=== PATIENT | male | born 1985 | race Caucasian/White ===

== ENCOUNTER 2018-02-20 21:36 | Emergency (ER) | payer OTHER, SELFPAY ==
[2018-02-20 21:37] VITALS: BP 135/77; PULSE 69; RESP 16; TEMP 37.1; O2SAT 98; BMI 21.2
--- NOTE | 2018-02-20 22:03 | EKG12_ITS ---
Test Reason : CHEST OTHER Blood Pressure : / mmHG Vent. Rate : 070 BPM Atrial Rate : 070 BPM P-R Int : 158 ms QRS Dur : 102 ms QT Int : 410 ms P-R-T Axes : 078 093 063 degrees QTc Int : 442 ms Normal sinus rhythm with sinus arrhythmia Possible Biatrial enlargement Abnormal ECG Confirmed by MERCEDES GARCIA ([id number]), film editor DULCE BALLESTEROS ([id number]) on 02/22/2018 9:31:23 AM Referred By: BRYANT/SHELLIE Confirmed By:MERCEDES GARCIA
--- NOTE | 2018-02-20 22:05 | RAD_ITS ---
STUDY: X-RAY CHEST REASON FOR EXAM: Male, 33 years old. Chest pain. TECHNIQUE: Single AP portable view of the chest. COMPARISON: 07/19/2013. FINDINGS: The lungs are clear and expanded. There is no demonstrated pleural abnormality. Sternal cerclage wires and vascular clips are present from a prior sternotomy and coronary artery bypass graft procedure (CABG). The heart size normal. Normal mediastinum and yesenia. Normal visualized pulmonary arteries. Normal visualized aortic arch and descending thoracic aorta. The thoracic spine is obscured by the mediastinum. Normal visualized ribs, clavicles, and shoulders. There is no demonstrated abnormality of the visualized soft tissue structures of the upper abdomen. RAD/Chest 1 View (Portable) IMPRESSION: No active pulmonary disease. Electronically Signed: Juan Maria MD at 22:28 EDT Tel , Service support ,
--- NOTE | 2018-02-20 22:23 | CT_ITS ---
STUDY: CTA CHEST REASON FOR EXAM: Male, 33 years old. Chest pain and numbness. RADIATION DOSAGE (If Supplied By Facility): CTDIvol = ( 11.33 ) mGy, DLP = ( 342.17 ) mGycm TECHNIQUE: The examination was performed with the intravenous administration of 100 ml of Isovue 370 contrast material. Post-processing of the angiographic images was performed, with multiplanar reformation and 3D reconstruction. Individualized dose optimization techniques were used for this CT. COMPARISON: None. FINDINGS: Normal enhancement of the main pulmonary artery and right and left pulmonary arteries. Normal enhancement of the bilateral peripheral pulmonary arteries. There is no demonstrated pulmonary embolism. There are surgical clips in the region of the aortic root. There is suboptimal enhancement of the aorta. Sternal cerclage wires are present from a prior sternotomy. There is no evidence of pericardial effusion. The heart size is normal. Normal mediastinum. Normal hilar regions. Normal visualized trachea and bronchi. The lungs are well expanded. There are no pulmonary infiltrates. There are no pleural effusions. Normal chest wall structures. There are Schmorl's nodes in the lower thoracic spine. Normal visualized upper abdomen. CT/CTA Chest W/WO Contrast IMPRESSION: No demonstrated pulmonary embolism. Status post median sternotomy. No infiltrate is seen. Electronically Signed: Juan Maria MD at 23:50 EDT Tel , Service support ,
[2018-02-20 22:29] VITALS: BP 134/80; PULSE 56; RESP 14; O2SAT 96
[2018-02-20 22:31] LABS: Absolute Lymphocyte Count 2.18 X10^3/ul (0.83-4.51); Absolute Neutrophil Count 2.6 X10^3/uL (2.0-7.7); Basophil# 0.01 X10^3/uL; Basophil% 0.2 % (0-1); Eosinophils% 1.8 % (0-5); Hematocrit 40.6 % (40-54); Hemoglobin 13.4 g/dl (13.0-16.5); Lymphocyte # 2.18 X10^3/ul (4.0); Lymphocyte % 38.9 % (19-41); Mean Corpuscular Hgb 28.8 pg (27.0-32.0); Mean Corpuscular Volume 87.3 fL (80-94); Mean Platelet Vol. 10.1 fl (6.2-12.0); Monocyte# 0.68 X10^3/uL; Monocyte% 12.1 % (0-10); Neutrophil # 2.62 X10^3/uL (2.7-7.7); Neutrophil % 46.8 % (47-70); Platelet Count 205 K/mm3 (150-450); RBC Distribution Width CV 12.2 % (11.6-14.6); RBC Distribution Width SD 38.7 fl (35.1-43.9); Red Blood Count 4.65 M/mm3 (4.6-6.2); White Blood Count 5.6 K/mm3 (4.4-11.0)
--- NOTE | 2018-02-20 22:35 | ED.VISSUMM ---
- ER Visit Summary Date of Service: 02/20/18 Chief Complaint: Palpitations, abnormal chest sensation History of Present Illness: The patient is a 33 M with medical history significant for thoracic aortic aneurysm that is status post graft repair in 2013 presents with abnormal chest sensation. Patient states that 4 days ago, he began to have numbness in the area surrounding his heart. He was also having some palpitations. He denies any franca chest pain. He denies any shortness of breath. He states over the weekend, it had resolved. Tonight, he began to have a similar sensation and felt as if his heart was skipping beats. The patient does have a history of Marfan's disorder. He did have aortic dissection grafted at the [facility] from his aortic root. He denies any other symptoms. He has had no pain. He denies any shortness of breath. Physical Examination: Vital signs reviewed General: Well-nourished, well-developed Head: Normocephalic, atraumatic Eyes: Pupils equal and reactive, extraocular muscles intact Neck, supple, no lymphadenopathy Heart: Regular rate and rhythm Respiratory: No distress, clear bilaterally Abdomen: Soft, nontender, nondistended, no peritoneal signs Back: Nontender Extremities: Nontender, no edema, no cords Skin: Normal color no rash Neuro: Alert and oriented, no focal or lateralizing deficits Test Results: [] Emergency Department Course and Treatment: The patient really had no reproducible pain or any pain to speak of. He states it was a numbness. I did obtain an EKG. There is sinus arrhythmia, but no acute ischemic change. Chest x-ray was unremarkable. Labs including cardiac enzymes are unremarkable. Patient underwent CTA of the chest. This shows no acute or normalities. There is no new dissection or aneurysm. The patient is resting comfortably. At this time, I do feel that he is safe for outpatient therapy. He will follow-up with his primary care or return with any worsening symptoms. Treatment Plan: [] Disposition: Discharge Impression:. Symptomatically palpitations This note was generated with [employer] dictation software. It may contain incorrect words, spelling, and punctuation that were not noted in review of the chart prior to signing ED Disposition - Plan for ED Patient: Chief Complaint: Chest Other Instructions: ED Chest Pain Atypical Unkn Cause Referrals: Care Physician,No Primary [Primary Care Provider] -
[2018-02-20 22:37] LABS: Anion Gap 6 (5-15); BUN 16 mg/dL (7-18); BUN/Creat Ratio 16.9 RATIO (10-20); Calcium,Total 8.8 mg/dL (8.5-10.1); Chloride 107 mmol/L (98-107); Creatinine, Serum 0.94 mg/dL (0.70-1.30); EST Glomerular Filtration Rate 98 mL/min (>60); Est Glom Filt Rate - Afr Amer 118 mL/min (>60); Estimated Creatinine Clearance 124.78 ml/min; Glucose 96 mg/dL (74-106); Potassium 3.7 mmol/L (3.5-5.1); Sodium Level 140 mmol/L (136-145)
[2018-02-20 22:38] LABS: POSITIVE COUNT NO; POSITIVE DIFFERENTIAL NO; POSITIVE MORPHOLOGY NO
[2018-02-21 00:08] VITALS: BP 128/70; BP 130/74; PULSE 80; RESP 14; O2SAT 99
== END 2018-02-21 00:13 | disposition home or self-care (01) ==
LOC: ED 23:04
PROVIDERS: Emergency Provider Emergency Medicine
DX: R00.2 Palpitations (principal); I10 Essential (primary) hypertension; Q87.40 Marfan syndrome, unspecified
CPT/HCPCS: 71045; 71275; 80048; 84484; 85025; 93005; 99285; Q9967; A4216

== ENCOUNTER 2021-01-17 13:24 | Emergency (ER) | payer OTHER, SELFPAY ==
[2021-01-17 13:25] VITALS: BP 141/85; PULSE 70; RESP 16; TEMP 37; O2SAT 98; BMI 20.7
--- NOTE | 2021-01-17 13:45 | CT_ITS ---
EXAM: CT ANGIOGRAPHY CHEST, ABDOMEN AND PELVIS WITH INTRAVENOUS CONTRAST CLINICAL INDICATION: Epigastric apin, h/o Marfan''s TECHNIQUE: Helically acquired angiography images were obtained of the chest, abdomen and pelvis with intravenous contrast. This CT exam was performed using one or more of the following dose reduction techniques: automated exposure control, adjustment of the mA and/or kV according to patient size, and/or use of iterative reconstruction technique. This report was created using [employer] report generation technology. MIP reconstructed images were created and reviewed. CONTRAST: IV 100mL Isovue-370 COMPARISON: None. FINDINGS: VASCULATURE: AORTA: There are operative changes of the ascending thoracic aorta. Normal in caliber. No dissection. PULMONARY ARTERIES: Unremarkable. Normal in caliber. No obvious central pulmonary embolism although this study was not performed with the pulmonary embolism protocol. GREAT VESSELS OF AORTIC ARCH: Unremarkable. Normal in caliber. No dissection. CELIAC TRUNK AND MESENTERIC ARTERIES: No acute findings. No occlusion or significant stenosis. No dissection. RENAL ARTERIES: No acute findings. No occlusion or significant stenosis. No dissection. ILIAC ARTERIES: No acute findings. No occlusion or significant stenosis. No dissection. CHEST: LUNGS AND PLEURAL SPACES: Unremarkable. No mass. No consolidation or edema. No pleural effusion or thickening. No pneumothorax. HEART: Unremarkable. Heart size is normal. No pericardial effusion. MEDIASTINUM: Unremarkable. No mediastinal or hilar adenopathy. Esophagus is unremarkable. No hiatal hernia. Status post sternotomy. THYROID: Unremarkable. No thyroid lesions. ABDOMEN: LIVER: Unremarkable. Homogeneous. No focal mass. GALLBLADDER AND BILE DUCTS: Unremarkable. No calcified gallstones. No gallbladder distention or wall edema. No intra- or extrahepatic biliary ductal dilation. PANCREAS: Unremarkable. No focal cystic or solid mass. SPLEEN: Unremarkable. Normal size without focal cystic or solid mass. ADRENALS: Unremarkable. No nodules. KIDNEYS AND URETERS: Unremarkable. Normal renal size and position. No hydronephrosis. STOMACH AND BOWEL: Unremarkable. No stomach or bowel distention. No focal inflammatory change. PELVIS: APPENDIX: The appendix measures 6 mm in diameter and is air-filled. BLADDER: Unremarkable. REPRODUCTIVE: Unremarkable as visualized. No mass. CHEST, ABDOMEN and PELVIS: INTRAPERITONEAL SPACE: Unremarkable. No ascites or other fluid collection. No free air. BONES/JOINTS: No suspicious lytic or blastic abnormality. SOFT TISSUES: Very small periumbilical fat-containing hernia. LYMPH NODES: Unremarkable. No enlarged lymph nodes. CT/CTA Chst, Abd, Pel W and/or WO IMPRESSION: No acute findings in the visualized arteries of the chest, abdomen or pelvis. Similar postoperative appearance of the ascending thoracic aorta. Electronically Signed: David Chawla MD (Brooks) at 15:02 EDT , Service support ,
--- NOTE | 2021-01-17 13:45 | EKG12_ITS ---
Test Reason : Blood Pressure : / mmHG Vent. Rate : 059 BPM Atrial Rate : 059 BPM P-R Int : 150 ms QRS Dur : 116 ms QT Int : 434 ms P-R-T Axes : 082 095 060 degrees QTc Int : 429 ms Sinus bradycardia Left atrial enlargement Rightward axis Borderline ECG Confirmed by MICHAEL MITCHELL, JEFFREY ([id number]), newspaper or periodical editor BUBBA WONG ([id number]) on 01/19/2021 1:41:39 PM Referred By: SEVERINO Confirmed By:JEFFREY RODRIGUEZ MD
[2021-01-17 14:07] LABS: Absolute Lymphocyte Count 1.25 X10^3/uL (0.83-4.51); Absolute Neutrophil Count 3.3 X10^3/uL (2.0-7.7); Basophil# 0.03 X10^3/uL; Basophil% 0.6 % (0-1); Eosinophil# 0.13 X10^3/uL; Eosinophils% 2.5 % (0-5); Hematocrit 41.8 % (40-54); Hemoglobin 13.5 g/dL (13.0-16.5); Lymphocyte # 1.25 X10^3/ul (4.0); Lymphocyte % 24.4 % (19-41); Mean Corp Hgb Conc 32.3 g/dL (32-36); Mean Corpuscular Hgb 28.8 pg (27.0-32.0); Mean Corpuscular Volume 89.1 fL (80-94); Mean Platelet Vol. 10.1 fl (6.2-12.0); Monocyte# 0.42 X10^3/uL; Monocyte% 8.2 % (0-10); NRBC Flagged by Analyzer 0 % (0-5); Neutrophil # 3.29 X10^3/uL (2.7-7.7); Neutrophil % 64.1 % (47-70); Platelet Count 233 K/mm3 (150-450); RBC Distribution Width CV 11.7 % (11.6-14.6); RBC Distribution Width SD 37.3 fl (35.1-43.9); Red Blood Count 4.69 M/mm3 (4.6-6.2); White Blood Count 5.1 K/mm3 (4.4-11.0)
[2021-01-17 14:23] LABS: AST(SGOT) 17 U/L (15-37); Alanine Aminotransfer ALT/SGPT 22 U/L (16-61); Albumin, Serum 3.8 g/dL (3.2-5.0); Alkaline Phosphatase 79 U/L (45-117); Anion Gap 3 (5-15); BUN 17 mg/dL (7-18); BUN/Creat Ratio 20.3 RATIO (10-20); Calcium,Total 8.8 mg/dL (8.5-10.1); Chloride 105 mmol/L (98-107); Creatinine, Serum 0.84 mg/dL (0.70-1.30); EST Glomerular Filtration Rate 110 mL/min (>60); Est Glom Filt Rate - Afr Amer 133 mL/min (>60); Estimated Creatinine Clearance 134.38 ml/min; Globulin 3.7 g/dL (2.2-4.2); Glucose 84 mg/dL (74-106); Lipase 90 U/L (73-393); Potassium 3.7 mmol/L (3.5-5.1); Protein, Total 7.5 g/dL (6.4-8.2); Sodium Level 138 mmol/L (136-145)
--- NOTE | 2021-01-17 15:21 | ED.VISSUMM ---
- ER Visit Summary Date of Service: 01/17/21 Chief Complaint: Abdominal pain History of Present Illness: The patient is a [address] Miranda. He has a history of Marfan syndrome. He reports that approximately 30 minutes ago he felt a sensation of gas bubble popping in the left side of his upper abdomen. States that it made him feel very nervous and short of breath for approximately 2 minutes. He states that he is back to normal now. He denies any chest pain. He does have a history of an aortic aneurysm repair. He has never had anything like this before. Physical Examination: Vitals: Stable. Afebrile. General: Well-nourished and well-developed. Head: Normocephalic atraumatic. Neck: Supple, no lymphadenopathy. No JVD. Nontender. Cardiovascular: Regular rate and rhythm. No murmurs. Respiratory: No respiratory distress. Clear to auscultation bilaterally. Abdominal: Soft, nontender, nondistended, normal bowel sounds. No guarding, rebound, or peritoneal signs. Back: Nontender. Extremities: Nontender, no edema. Skin: Normal color, no rash. Neurologic: Alert and oriented ?3. Cranial nerves II through XII are intact. Normal strength and sensation. Psych: Normal affect. Test Results: EKG is sinus bradycardia at 59 with left atrial enlargement. Is unchanged from 2018. Troponin is negative. LFTs are normal. Lipase is normal. Chem-7 is normal. CBC is normal. Clinical Impression(s) from Imaging Studies Chest/Abdomen/Pelvis CTA 01/17/21 13:45 IMPRESSION: No acute findings in the visualized arteries of the chest, abdomen or pelvis. Similar postoperative appearance of the ascending thoracic aorta. Electronically Signed: David Chawla MD (Brooks) at 15:02 EDT , Service support , Emergency Department Course and Treatment: Patient is resting comfortably. He refused pain or nausea medications. He was reassured. Treatment Plan: Patient be discharged instructed to follow-up his primary care physician as needed. Return to the emergency department for any worsening symptoms. Disposition: To home in improved and stable condition. Impression: 1. Abdominal pain, uncertain cause. This note was generated with Dragon dictation software. It may contain incorrect words, spelling, and punctuation that were not noted in review of the chart prior to signing ED Disposition - Plan for ED Patient: Instructions: ED Unknown Causes of Abdominal ... Referrals: Hugo Miranda [Primary Care Provider] - As Needed
[2021-01-17 15:34] VITALS: BP 134/92; PULSE 50; RESP 18; O2SAT 100
== END 2021-01-17 15:36 | disposition home or self-care (01) ==
LOC: ED 14:26
PROVIDERS: Emergency Provider Emergency Medicine
DX: R10.9 Unspecified abdominal pain (principal); R00.1 Bradycardia, unspecified; R06.02 Shortness of breath; Q87.40 Marfan syndrome, unspecified
CPT/HCPCS: 71275; 74174; 80053; 83690; 84484; 85025; 93005; 99284; J7030; Q9967

== ENCOUNTER 2022-08-30 19:47 | Emergency (ER) | payer OTHER, SELFPAY ==
[2022-08-30 19:47] VITALS: BP 133/67; PULSE 57; RESP 16; TEMP 36.6; O2SAT 98; BMI 20.7
--- NOTE | 2022-08-30 19:55 | EKG12_ITS ---
Test Reason : PALPS Blood Pressure : / mmHG Vent. Rate : 051 BPM Atrial Rate : 051 BPM P-R Int : 140 ms QRS Dur : 102 ms QT Int : 430 ms P-R-T Axes : 068 096 055 degrees QTc Int : 396 ms Sinus bradycardia Rightward axis Borderline ECG Confirmed by KAREL MITCHELL, PANTERA ([id number]), slot editor BUBBA WONG ([id number]) on 09/01/2022 11:08:47 AM Referred By: ABDIAZIZ Confirmed By:PANTERA VINSON MD
--- NOTE | 2022-08-30 20:02 | EX.ED.DYSGE1 ---
HPI History of Present Illness Chief Complaint: Palpitations Narrative Narrative: 37-year-old male with history of Marfan syndrome presenting with abnormal sensations he has in his chest. He states he had open heart surgery about 10 years ago he is status post Sreekanth procedure with aortic root replacement and reimplantation of aortic valve in 2012. He is presenting today with palpitations, but also states that since his open heart surgery he has been able to feel his heartbeat in one-point area of his chest. Today he states that over the last 2 weeks with the palpitations he now feels his heartbeat a few inches below this on the left side of his chest and also feels on the right side of his chest. He does not describe ripping or tearing sensation. He has not tried chest pain. He is not having any shortness of breath. No fevers, chills, cough. Patient states he was evaluated last year status post having COVID and had some palpitations. He states he had a registered nurse cardiac telemetry and states he pushed the button multiple times but was also told that this was a normal evaluation and did not need anything further. He does not have any history of CAD. He is on losartan to maintain his blood pressure. He is on daily aspirin 81 mg as well. [facility] Medical History Marfan syndrome Home Medications losartan 100 mg tablet 100 mg PO DAILY 03/08/16 [History Last Taken 03/08/16] aspirin 81 mg tablet,delayed release 81 mg PO DAILY 08/30/22 [History Last Taken Unknown] Allergy/AdvReac Type Severity Reaction Status Date / Time adhesive Allergy Unknown Verified 08/30/22 19:49 latex Allergy Unknown Verified 08/30/22 19:49 Penicillins Allergy Unknown Verified 08/30/22 19:49 Surgical History History of open heart surgery Social History Smoking Status: Never smoker ROS ROS ED Constitutional Constitutional ED: Denies chills or fever(s) Eyes Eyes: Denies change in vision or diplopia ENT ENT ED: Denies rhinorrhea or sore throat Cardiovascular Cardiovascular: Reports palpitations; Denies chest pain Respiratory/Chest Respiratory/Chest: Denies cough or dyspnea Gastrointestinal Gastrointestinal: Denies abdominal pain, constipation, nausea or vomiting Genitourinary Genitourinary ED: Denies dysuria or hematuria Musculoskeletal Musculoskeletal: Denies arthralgias or back pain Integumentary Denies abscess Neurologic Neurologic: Denies headache(s) or paresthesias Psychiatric Psychiatric: Denies anxiety or depression EXAM Physical Exam Const Vital Signs: 08/30/22 19:47 08/30/22 19:56 08/30/22 19:56 Temperature 97.9 F Temperature Source Temporal Pulse Rate 57 L Respiratory Rate 16 Respiratory Effort Normal Non-Labored Blood Pressure 133/67 H Blood Pressure Mean 89 Pulse Ox 98 Oxygen Delivery Method Room Air Room Air Positive well nourished General Appearance ED: NAD; Negative for pallor HEENT Reports moist mucous membranes Negative for trauma Eyes PERRL and EOMs intact bilaterally General Eye ED: Yes pale conjunctiva and scleral icterus Neck no lymphadenopathy Chest Wall inspection of chest normal and palpation of chest normal Resp normal respiratory effort and clear to auscultation bilaterally Auscultation: Negative for rales, rhonchi or wheezes Cardio regular rate and regular rhythm GI normal to inspection, nondistended, normoactive bowel sounds and no masses Neuro oriented x3 and CN's II-XII intact bilaterally Sensorium / Orientation: alert Motor Exam: strength 5/5 throughout Psych mental status grossly normal Skin no rashes or lesions noted General Skin Exam: Negative for jaundice or pallor MDM MDM MDM Narrative Medical decision making narrative: Patient physical exam is unremarkable. Heart regular rate and rhythm. Lungs clear to auscultation. Vital signs stable. He is afebrile. He is normotensive. CBC and BMP are unremarkable. High-sensitivity phone is 10. CTA of the chest and pelvis was obtained to rule out dissection and there is no evidence of dissection or PE. No acute cardiopulmonary processes noted. Patient counseled on findings. I think he stable for discharge. I recommended he follow-up with cardiology on outpatient basis. Return precautions were discussed. Impression: 1. Palpitations 2. History of Marfan syndrome 3. History of aortic valve disease Lab Data Labs: Laboratory Results - last 24 hr 08/30/22 08/30/22 20:07 20:07 WBC 6.1 RBC 4.56 L Hgb 13.0 Hct 40.3 MCV 88.4 MCH 28.5 MCHC 32.3 RDW Std Deviation 39.3 RDW Coeff of Param 12.2 Plt Count 257 MPV 9.9 Immature Gran % (Auto) 0.200 Neut % (Auto) 52.4 Lymph % (Auto) 33.1 [place] % (Auto) 9.0 Eos % (Auto) 4.8 Baso % (Auto) 0.5 Absolute Neuts (auto) 3.2 Absolute Lymphs (auto) 2.02 Nucleated RBC % 0 Sodium 141 Potassium 3.9 Chloride 107 Carbon Dioxide 29.0 Anion Gap 5 BUN 11 Creatinine 0.72 Estim Creat Clear Calc 153.21 Est GFR (MDRD) Af Amer 157 Est GFR (MDRD) Non-Af 130 BUN/Creatinine Ratio 15.2 Glucose 79 Calcium 9.0 Troponin I High Sens 10 Radiography Diagnostic Testing: Clinical Impression(s) from Imaging Studies Chest/Abdomen/Pelvis CTA 08/30/22 20:20 IMPRESSION: No demonstrated pulmonary embolism or arterial dissection. Electronically Signed: Chetan Carl MD at 20:52 EST Reading Location ID and State: [facility] / [place] , Service support , Discharge Plan Triage Chief Complaint: Palpitations ED Provider: Angel Villalba Dx/Rx/DC Orders Prescriptions: No Action losartan 100 MG tablet 100 mg PO DAILY aspirin [Aspir-81] 81 mg Tablet,Delayed Release (Dr/Ec) 81 mg PO DAILY Primary Care Provider: Hugo Miranda Referrals: Hugo Miranda [Primary Care Provider] -
[2022-08-30 20:15] LABS: Absolute Lymphocyte Count 2.02 X10^3/uL (0.83-4.51); Absolute Neutrophil Count 3.2 X10^3/uL (2.0-7.7); Basophil# 0.03 X10^3/uL; Basophil% 0.5 % (0-1); Eosinophil# 0.29 X10^3/uL; Eosinophils% 4.8 % (0-5); Hematocrit 40.3 % (40-54); Lymphocyte # 2.02 X10^3/ul (0.83-4.51); Lymphocyte % 33.1 % (19-41); Mean Corp Hgb Conc 32.3 g/dL (32-36); Mean Corpuscular Hgb 28.5 pg (27.0-32.0); Mean Corpuscular Volume 88.4 fL (80-94); Mean Platelet Vol. 9.9 fl (6.2-12.0); Monocyte# 0.55 X10^3/uL; NRBC Flagged by Analyzer 0 % (0-5); Neutrophil % 52.4 % (47-70); Platelet Count 257 K/mm3 (150-450); RBC Distribution Width CV 12.2 % (11.6-14.6); RBC Distribution Width SD 39.3 fl (35.1-43.9); Red Blood Count 4.56 M/mm3 (4.6-6.2); White Blood Count 6.1 K/mm3 (4.4-11.0)
--- NOTE | 2022-08-30 20:20 | CT_ITS ---
EXAM: CT ANGIOGRAPHY CHEST, ABDOMEN AND PELVIS WITH INTRAVENOUS CONTRAST CLINICAL INDICATION: dissection study TECHNIQUE: Helically acquired angiography images were obtained of the chest, abdomen and pelvis with intravenous contrast. This CT exam was performed using one or more of the following dose reduction techniques: automated exposure control, adjustment of the mA and/or kV according to patient size, and/or use of iterative reconstruction technique. This report was created using [employer] report generation technology. MIP reconstructed images were created and reviewed. CONTRAST: IV 100mL Isovue-370 RADIATION DOSE: CTDIvol = 6.80 mGy, DLP = 498.96 mGy-cm COMPARISON: 3..21 FINDINGS: VASCULATURE: AORTA: Abdominal aorta: No demonstrated narrowing. Normal in caliber. No dissection. PULMONARY ARTERIES: No demonstrated pulmonary embolism or arterial dissection. GREAT VESSELS OF AORTIC ARCH: Unremarkable. Normal in caliber. No dissection. CELIAC TRUNK AND MESENTERIC ARTERIES: Celiac and superior mesenteric arteries: No demonstrated narrowing. Inferior mesenteric artery: No demonstrated narrowing. No dissection. RENAL ARTERIES: Right renal artery(arteries): No demonstrated narrowing. Left renal artery(arteries): No demonstrated narrowing. No dissection. ILIAC ARTERIES: Right common iliac artery: No demonstrated narrowing. Right external iliac artery: No demonstrated narrowing. Right internal iliac artery: No demonstrated narrowing. Left common iliac artery: No demonstrated narrowing. Left external iliac artery: No demonstrated narrowing. Left internal iliac artery: No demonstrated narrowing. No dissection. CHEST: LUNGS AND PLEURAL SPACES: Unremarkable. No mass. No consolidation or edema. No pleural effusion or thickening. No pneumothorax. HEART: See below. MEDIASTINUM: Unremarkable. No mediastinal or hilar adenopathy. Esophagus is unremarkable. No hiatal hernia. THYROID: Unremarkable. No thyroid lesions. ABDOMEN: LIVER: Unremarkable. Homogeneous. No focal mass. GALLBLADDER AND BILE DUCTS: Unremarkable. No calcified gallstones. No gallbladder distention or wall edema. No intra- or extrahepatic biliary ductal dilation. PANCREAS: Unremarkable. No focal cystic or solid mass. SPLEEN: Unremarkable. Normal size without focal cystic or solid mass. ADRENALS: Unremarkable. No nodules. KIDNEYS AND URETERS: Unremarkable. Normal renal size and position. No hydronephrosis. STOMACH AND BOWEL: There is an umbilical hernia containing fat. There is no bowel involvement. There is no incarceration. There is no findings suggesting that this is causing a bowel obstruction. No focal inflammatory change. PELVIS: APPENDIX: No evidence of acute appendicitis. BLADDER: Unremarkable. REPRODUCTIVE: Unremarkable as visualized. No mass. CHEST, ABDOMEN and PELVIS: INTRAPERITONEAL SPACE: Unremarkable. No ascites or other fluid collection. No free air. BONES/JOINTS: Multiple median sternotomy wires are noted consistent for cardiac surgery. There are multi-level degenerative changes of the thoracic spine. No suspicious lytic or blastic abnormality. SOFT TISSUES: See above. LYMPH NODES: Unremarkable. No enlarged lymph nodes. CT/CTA Chst, Abd, Pel W and/or WO IMPRESSION: No demonstrated pulmonary embolism or arterial dissection. Electronically Signed: Chetan Carl MD at 20:52 EST ,
[2022-08-30 20:30] LABS: Anion Gap 5 (5-15); BUN 11 mg/dL (7-18); BUN/Creat Ratio 15.2 RATIO (10-20); Chloride 107 mmol/L (98-107); Creatinine, Serum 0.72 mg/dL (0.70-1.30); EST Glomerular Filtration Rate 130 mL/min (>60); Est Glom Filt Rate - Afr Amer 157 mL/min (>60); Estimated Creatinine Clearance 153.21 ml/min; Glucose 79 mg/dL (74-106); Potassium 3.9 mmol/L (3.5-5.1); Sodium Level 141 mmol/L (136-145); Troponin-I HS 10 pg/mL (3.0-78.0)
[2022-08-30 21:18] VITALS: BP 108/67; PULSE 46; RESP 18; O2SAT 97
== END 2022-08-30 21:48 | disposition home or self-care (01) ==
PROVIDERS: Emergency Provider Student in an Organized Health Care Education/Training Program; Visit Provider Student in an Organized Health Care Education/Training Program
DX: R00.2 Palpitations (principal); Q87.40 Marfan syndrome, unspecified
CPT/HCPCS: 71275; 74174; 80048; 84484; 85025; 93005; 99283; Q9967; A4216

== ENCOUNTER 2024-02-03 00:25 | Emergency (ER) | payer OTHER, SELFPAY ==
[2024-02-03 00:26] VITALS: BP 153/92; PULSE 59; RESP 10; TEMP 36.6; O2SAT 98; BMI 21.2
[2024-02-03 00:49] VITALS: PULSE 51; RESP 13; O2SAT 98
--- NOTE | 2024-02-03 00:54 | EKG12_ITS ---
Test Reason : CP Blood Pressure : / mmHG Vent. Rate : 059 BPM Atrial Rate : 059 BPM P-R Int : 150 ms QRS Dur : 106 ms QT Int : 440 ms P-R-T Axes : 081 095 049 degrees QTc Int : 435 ms Sinus bradycardia Possible Left atrial enlargement Rightward axis Borderline ECG Confirmed by Sven Barone ([id number]), development editor BONITA EASTMAN ([id number]) on 02/03/2024 11:06:46 AM Referred By: JENNIFER Confirmed By:Sven Barone
--- NOTE | 2024-02-03 00:54 | RAD_ITS ---
INDICATION: Palpitations EXAMINATION/TECHNIQUE: X-RAY - XR Chest 2 Views COMPARISON: 02/20/2018 FINDINGS: LINES/DEVICES: None LUNGS: The lungs are well expanded. No consolidation, edema or effusion. No pneumothorax. MEDIASTINUM AND CARDIOVASCULAR STRUCTURES: Cardiac silhouette not enlarged. Central airways and mediastinal contour are unremarkable. BONES AND SOFT TISSUES: No acute osseous abnormalities. RAD/Chest PA and Lateral IMPRESSION: No acute pulmonary finding. Electronically Signed: Sreekanth Vargas MD at 1:25 EDT ,
[2024-02-03 01:00] VITALS: BP 114/78; PULSE 55; RESP 12; O2SAT 94
[2024-02-03 01:12] LABS: Absolute Lymphocyte Count 2.02 X10^3/uL (0.83-4.51); Absolute Neutrophil Count 2.5 X10^3/uL (2.0-7.7); Basophil# 0.03 X10^3/uL; Basophil% 0.6 % (0-1); Eosinophil# 0.27 X10^3/uL; Eosinophils% 5.1 % (0-5); Lymphocyte # 2.02 X10^3/ul (0.83-4.51); Lymphocyte % 38.3 % (19-41); Mean Corp Hgb Conc 31.7 g/dL (32-36); Mean Corpuscular Hgb 27.8 pg (27.0-32.0); Mean Corpuscular Volume 87.6 fL (80-94); Mean Platelet Vol. 10.1 fl (6.2-12.0); Monocyte# 0.47 X10^3/uL; Monocyte% 8.9 % (0-10); NRBC Flagged by Analyzer 0 % (0-5); Neutrophil # 2.48 X10^3/uL (2.7-7.7); Neutrophil % 46.9 % (47-70); Platelet Count 245 K/mm3 (150-450); RBC Distribution Width CV 12.1 % (11.6-14.6); RBC Distribution Width SD 39.1 fl (35.1-43.9); Red Blood Count 4.68 M/mm3 (4.6-6.2); White Blood Count 5.3 K/mm3 (4.4-11.0)
[2024-02-03 01:15] VITALS: BP 114/72; PULSE 53; RESP 14; O2SAT 98
[2024-02-03 01:23] LABS: D-Dimer Quantitative (DVT/PE) 0.37 FEU/ug/m (0.27-0.49)
[2024-02-03 01:30] VITALS: BP 102/66; PULSE 49; RESP 15; O2SAT 95
[2024-02-03 01:36] LABS: Anion Gap -1 (5-15); BUN 18 mg/dL (7-18); BUN/Creat Ratio 22.6 RATIO (10-20); Calcium,Total 9.1 mg/dL (8.5-10.1); Chloride 105 mmol/L (98-107); EST Glomerular Filtration Rate 115 mL/min (>60); Est Glom Filt Rate - Afr Amer 139 mL/min (>60); Estimated Creatinine Clearance 140.25 ml/min; Glucose 103 mg/dL (74-106); Magnesium 2.3 mg/dL (1.6-2.6); Potassium 3.6 mmol/L (3.5-5.1); Sodium Level 138 mmol/L (136-145); Thyroid Stim Hormone (TSH) 4.79 uIU/mL (0.358-3.74)
--- NOTE | 2024-02-03 01:47 | EX.ED.DYSGE1 ---
HPI History of Present Illness Chief Complaint: Palpitations Informant: patient Narrative Narrative: Patient is a 38-year-old male with past medical history of Marfan syndrome. He states that throughout the entire day today he has been feeling palpitations/extra beats. He states he is felt this way in the past and that his previous workups have not revealed any clinically significant findings. However because of his history of Marfan's he is concerned and therefore comes in for evaluation. He denies any history of excessive stimulant use or illicit drug use [facility] Medical History Marfan syndrome Home Medications losartan 100 mg tablet 100 mg PO DAILY 03/08/16 [History Last Taken 03/08/16] aspirin 81 mg tablet,delayed release 81 mg PO DAILY 08/30/22 [History Last Taken Unknown] Allergy/AdvReac Type Severity Reaction Status Date / Time adhesive Allergy Unknown Verified 08/30/22 19:49 latex Allergy Unknown Verified 08/30/22 19:49 Penicillins Allergy Unknown Verified 08/30/22 19:49 Surgical History History of open heart surgery Social History Smoking Status: Never smoker [facility] ED Constitutional Constitutional ED: Denies chills or fever(s) ENT ENT ED: Denies sore throat Cardiovascular Cardiovascular: Reports palpitations; Denies chest pain or racing heartbeat Respiratory/Chest Respiratory/Chest: Denies cough or dyspnea Gastrointestinal Gastrointestinal: Denies abdominal pain, diarrhea, nausea or vomiting Genitourinary Genitourinary ED: Denies dysuria Musculoskeletal Musculoskeletal: Denies myalgias Integumentary Denies rash Neurologic Neurologic: Denies headache(s) Hematologic/Lymphatic Hematologic/Lymphatic: Denies easy bleeding or easy bruising EXAM Physical Exam Const Vital Signs: 02/03/24 00:26 02/03/24 00:31 02/03/24 00:49 Temperature 97.9 F Temperature Source Oral Pulse Rate 59 L 51 L Respiratory Rate 10 L 13 Respiratory Pattern Normal Blood Pressure 153/92 H Blood Pressure Mean 112 Pulse Ox 98 98 Oxygen Delivery Method Room Air 02/03/24 01:00 02/03/24 01:15 02/03/24 01:30 Temperature Temperature Source Pulse Rate 55 L 53 L 49 L Respiratory Rate 12 14 15 Respiratory Pattern Blood Pressure 114/78 114/72 102/66 Blood Pressure Mean 89 85 78 Pulse Ox 94 98 95 Oxygen Delivery Method Room Air 02/03/24 01:57 Temperature 96.7 F L Temperature Source Pulse Rate 51 L Respiratory Rate 16 Respiratory Pattern Blood Pressure 102/66 Blood Pressure Mean 78 Pulse Ox 97 Oxygen Delivery Method Positive well nourished and well developed General Appearance ED: well developed; Negative for pallor HEENT HEENT Narrative: Normocephalic atraumatic Eyes PERRL and EOMs intact bilaterally General Eye ED: Negative for pale conjunctiva or scleral icterus Neck supple Chest Wall palpation of chest normal Resp normal respiratory effort and clear to auscultation bilaterally Cardio regular rate and regular rhythm Rate: other Other Details: Radial and carotid pulses are equal and symmetric GI normal to inspection, nondistended, normoactive bowel sounds, non-tender, non-distended and no masses GI Narrative: No pulsatile mass noted Auscultation: normoactive bowel sounds Palpation: soft Extremity normal to inspection Extremity Narrative: No asymmetric edema no pitting edema negative Homans' sign bilaterally Neuro oriented x3, CN's II-XII intact bilaterally and no sensory deficits noted Sensorium / Orientation: alert Motor Exam: strength 5/5 throughout Psych mental status grossly normal Skin no rashes or lesions noted, no wounds and skin turgor normal General Skin Exam: Negative for jaundice or pallor MDM MDM MDM Narrative Medical decision making narrative: Patient arrived to the ER slightly hypertensive otherwise with stable vitals. He reported feeling palpitations that he described as extra beats throughout the day. He denied any excessive stimulant use or illicit drug use as a cause. He did state that multiple years ago he had a Holter monitor study that did not reveal any acute finding. Demential diagnosis is for PACs versus PVCs versus heart block versus abnormal cardiac rhythm such as A-fib versus a flutter versus SVT. There is also concern for acute electrolyte abnormality. Also as patient had endorsed some left calf tenderness there is concern for potential DVT even though his risk factors are minimal. Secondary to this a basic workup was obtained. Labs revealed no clinically significant findings with normal electrolytes and no signs of SALVATORE. Patient also the negative D-dimer going against DVT and dissection. Chest x-ray revealed no acute findings either and despite being on the monitor for his entire ER stay there is no ectopy or dysrhythmia change noted. Therefore at this time with overall negative workup and stable vitals patient is otherwise safe for discharge History & Record Review Discussion w/independent historian: Patient Lab Data Attestation: I reviewed the patient's lab results. Labs: Laboratory Results - last 24 hr 02/03/24 00:30 WBC 5.3 RBC 4.68 Hgb 13.0 Hct 41.0 MCV 87.6 MCH 27.8 MCHC 31.7 L RDW Std Deviation 39.1 RDW Coeff of Param 12.1 Plt Count 245 MPV 10.1 Immature Gran % (Auto) 0.200 Neut % (Auto) 46.9 L Lymph % (Auto) 38.3 [place] % (Auto) 8.9 Eos % (Auto) 5.1 H Baso % (Auto) 0.6 Absolute Neuts (auto) 2.5 Absolute Lymphs (auto) 2.02 Nucleated RBC % 0 D-Dimer Quant (PE/DVT) 0.37 Sodium 138 Potassium 3.6 Chloride 105 Carbon Dioxide 34.0 H Anion Gap -1 L BUN 18 Creatinine 0.80 Estim Creat Clear Calc 140.25 Est GFR (MDRD) Af Amer 139 Est GFR (MDRD) Non-Af 115 BUN/Creatinine Ratio 22.6 H Glucose 103 Calcium 9.1 Magnesium 2.3 TSH 4.79 H Radiography Diagnostic Testing: Clinical Impression(s) from Imaging Studies Chest X-Ray 02/03/24 00:54 IMPRESSION: No acute pulmonary finding. Electronically Signed: Sreekanth Vargas MD at 1:25 EDT , 2 view chest x-ray as interpreted by the emergency medicine physician reveals no acute infiltrate pneumothorax pleural effusion or widening of the mediastinum Discharge Plan Triage Chief Complaint: Palpitations ED Provider: Cole Calabrese Dx/Rx/DC Orders Clinical Impression: Heart palpitations, Marfan syndrome Prescriptions: No Action losartan 100 MG tablet 100 mg PO DAILY aspirin [Aspir-81] 81 mg Tablet,Delayed Release (Dr/Ec) 81 mg PO DAILY Primary Care Provider: Hugo Miranda Referrals: Hugo Miranda MD [Primary Care Provider] - Activity Restrictions/Additional Instructions: Please follow-up with your family doctor and/or [facility] for repeat evaluation to discuss potential need for Holter monitor and or cardiac echocardiogram. Return to the ER should you have any further concerns Disposition Disposition: Home, Self Care Discharge Date/Time: 02/03/24 01:59
[2024-02-03 01:57] VITALS: BP 102/66; PULSE 51; RESP 16; TEMP 35.9; O2SAT 97
== END 2024-02-03 01:59 | disposition home or self-care (01) ==
PROVIDERS: Emergency Provider Emergency Medicine; PCP Family Medicine; Visit Provider Emergency Medicine
DX: R00.2 Palpitations (principal); M79.662 Pain in left lower leg; Q87.40 Marfan syndrome, unspecified; Z79.82 Long term (current) use of aspirin; Z79.899 Other long term (current) drug therapy
CPT/HCPCS: 71046; 80048; 83735; 84443; 85025; 85379; 93005; 99282; A4216